=== PATIENT | female | born 1990 | race African-American/Black ===

== ENCOUNTER 2023-08-03 23:31 | Emergency (ER) | payer MEDICAID, OTHER ==
[~2023-08-03] VITALS: Ht 157.5 cm; Wt 79.0 kg
[2023-08-04 00:03] VITALS: O2SAT 98
[2023-08-04] MEDS ORDERED: ACETAMINOPHEN 325MG TABLET PO ONE (01:15)
[2023-08-04] MEDS ORDERED: IBUPROFEN 400MG TABLET PO ONE (01:15)
[2023-08-04 01:27] LABS: CLARITY URINE CLOUDY (CLEAR); COLOR URINE YELLOW (YELLOW); GLUCOSE URINE NEGATIVE (NEGATIVE); KETONES URINE NEGATIVE (NEGATIVE); LEUKOCYTE ESTERASE URINE 1+ (NEGATIVE); NITRITE URINE NEGATIVE (NEGATIVE); OCCULT BLOOD URINE NEGATIVE (NEGATIVE); PROTEIN URINE NEGATIVE (NEGATIVE); SPECIFIC GRAVITY URINE 1.023 (1.005-1.030)
[2023-08-04 01:29] LABS: BACTERIA URINE 2+; SQUAMOUS EPITHELIAL CELL URINE 2+ /lpf (RARE/1+); YEAST URINE NONE SEEN
[2023-08-04] MEDS ORDERED: IBUP-2028 MT (01:42)
[2023-08-04] MEDS ORDERED: AMOX-494 MT (01:42)
[2023-08-04 02:16] VITALS: BP 130/80; PULSE 114; RESP 18; TEMP 100.4
[2023-08-04 02:39] LABS: RBC URINE 0-2 /hpf (0-2)
== END 2023-08-04 02:16 | disposition home or self-care (01) ==
LOC: ER 23:31
DX: N39.0 Urinary tract infection, site not specified (principal); J02.9 Acute pharyngitis, unspecified; R50.9 Fever, unspecified; Z88.5 Allergy status to narcotic agent; Z88.8 Allergy status to other drugs, medicaments and biological substances; Z98.890 Other specified postprocedural states
CPT/HCPCS: 81003; 81025; 87070; 87430; 99283